=== PATIENT | female | born 2000 | race Caucasian/White ===

== ENCOUNTER 2021-11-29 10:30 | Outpatient (RCR) | payer SELFPAY ==
--- NOTE | 2021-10-04 12:10 | PT.OPEX ---
PT [place] [facility] PT [facility] Eval Start: 09/03/21 12:37 Freq: Status: Active Protocol: Document 09/03/21 12:37 EJ (Rec: 09/03/21 12:41 EJ [id number]) E-signed By Jos Yo DPT, MS Physical Therapy Outpatient Evaluation Insurance Information Insurance Name [employer] Medical Diagnosis Concussion without loss of consciousness, subsequent encounter Treating Diagnosis Neck pain, HAs, sensory disorganization, B (R>L) CS hypertonicity and decreased flexibility, convergence insufficiency, dynamic visual acuity deficit, and VOR cancellation deficit Subjective Subjective Pt presents to PT with c/o chronic dizziness, difficulty reading, imbalance, HAs, and eye and mental fatigue following concussion on 06/13/21 . Injury occurred during a rugby tackle with pt striking her R forehead on the opposing player?s shoulder. Southside off but played ~3 minutes more. Sxs increased over the next 2- 3 days, especially during 10- day isolation due to stephen Covid. Sxs have been increasing lately due to high levels of life stress after the of both of her parents and she is considering taking next school semester off. Some dizziness with aggravation of sxs. HAs have increased in intensity with sharp pain above each eye and hinduism, especially with busy environments and reading. Recalls a couple previous mild concussions. PMH includes anxiety, mood disorder, depression, PTSD. AGGR factors : busy environments, walking in hallways and outside, reading, computer use, heavy exercise. ALLEV factors: rest . Pt hopes to return to playing rugby, performing all school and daily activities without sxs. Pain Comments Neck 0-4/10 HAs: Mild - severe Preferred Name Thomas Precautions Therapy Limitations/Systems Review Not Limited Assessment Assessment/Impression Pt displays signs and symptoms consistent with post- concussion syndrome. Objectively pt displays sensory disorganization, B (R> L) CS hypertonicity and decreased flexibility, convergence insufficiency, dynamic visual acuity deficit, and VOR cancellation deficit. Overreliance on vision for balance with testing consistent with peripheral vestibular dysfunction. CS tightness and TPs combined with visual deficits leading to chronic HAs. Instructed pt to not push through sxs, resting with elevation in dizziness or HAs. Good response to MT, balance and visual exercises with resolution of NORRIS and mental fatigue following. She will benefit greatly from continued skilled therapy to address these limitations. Primary Functional Limitations Busy environments, walking in hallways and outside, reading, computer use, heavy exercise. Plan of Care Rehabilitation Potential Excellent Physical Therapy Goals prison goals to be completed in 10 weeks 1. Pt will be independent and compliant with HEP for fci sx management 2. Pt will display improved convergence <10 cm to improve tolerance to reading and school activities. 3. Pt will display resolution of VOR cancellation deficit to improve tolerance to busy environments 4. Pt will be able to full exercise and rugby participation without elevation in sxs to improve cardiovascular fitness. Coordination/Communication With Referral Source Treatment Plan/Direct Interventions Joint Mobilization,Manual Therapy,Neuromuscular Re-ed, Therapeutic Exercises Frequency/Duration 1-2x per week for at least 8- 12 visits, decreasing visit frequency as able. Patient Will Be Discharged From Therapy Completion of LTG(s),Skills Plateau,Independent w/HEP, Independently Progressing Evaluation Billing Untimed Code Treatment Minutes 25 Complexity Moderate
== END 2022-06-20 12:38 | disposition home or self-care (01) ==
PROVIDERS: Visit Provider Family Medicine
DX: S06.0X0D Concussion without loss of consciousness, subsequent encounter (principal); M54.2 Cervicalgia; Z51.89 Encounter for other specified aftercare
CPT/HCPCS: 97110; 97140; 97162